=== PATIENT | female | born 1955 | race Caucasian/White ===

== ENCOUNTER 2020-02-17 09:06 | Day surgery (SDC) | payer BC, OTHER ==
[2020-02-06 14:42] VITALS: BMI 33.8
[2020-02-17 11:11] VITALS: PULSE 84; TEMP 98.4
[2020-02-17 11:46] VITALS: BP 163/90
--- NOTE | 2020-02-23 15:32 | PATH ---
Surgical Pathology Report Patient Name: ZANDRA JACOBO [facility]. Rec. #: [id number] /Age/Gender: 1955 (Age: 64) / F Account: [id number] Location: [facility] Taken: 02/17/2020 Received: 02/17/2020 Reported: 02/23/2020 Physicians: Trey Alberto M.D. Specimen(s) Received A: BX STOMACH B: BX POLYP ASCENDING COLON C: HOT SNARE POLYPECTOMY TRANSVERSE COLON Clinical History History of polyps, abdominal pain Postoperative diagnosis: Gastritis, colon polyps, diverticulosis, hemorrhoids Final Diagnosis A. STOMACH, BIOPSY: MILD CHRONIC GASTRITIS WITH FEATURES OF REACTIVE GASTROPATHY. IMMUNOSTAIN IS NEGATIVE FOR H. PYLORI ORGANISMS. B. ASCENDING COLON, POLYP, BIOPSY: TUBULAR ADENOMA. C. TRANSVERSE COLON, POLYP, HOT SNARE POLYPECTOMY: SESSILE SERRATED POLYP. Electronically Signed Tonya Shah M.D. Gross Description A. Received in formalin, labeled "biopsy stomach" are 4 pavon, irregular portions of soft tissue ranging from 0.1-0.3 cm. in greatest dimension. The specimens are submitted in toto in one cassette. B. Received in formalin, labeled "biopsy polyp ascending colon" is a pavon, irregular portion of soft tissue measuring 0.4 cm. in greatest dimension. The specimen is submitted in toto in one cassette. C. Received in formalin, labeled "hot snare polypectomy transverse colon" is a pavon, irregular portion of soft tissue measuring 0.5 cm. in greatest dimension. The specimen is submitted in toto in one cassette. 02/18/2020 [facility]/02/18/2020
== END 2020-02-17 11:45 | disposition home or self-care (01) ==
LOC: FASU-ENDO 09:06
PROVIDERS: ATTEND Internal Medicine Gastroenterology
PROC: 0DBK8ZX Excision of Ascending Colon, Via Natural or Artificial Opening Endoscopic, Diagnostic (ICD-10-PCS; 2020-02-17)
PROC: 0DB68ZX Excision of Stomach, Via Natural or Artificial Opening Endoscopic, Diagnostic (ICD-10-PCS; 2020-02-17)
PROC: 0DBL8ZX Excision of Transverse Colon, Via Natural or Artificial Opening Endoscopic, Diagnostic (ICD-10-PCS; principal; 2020-02-17 10:23)
DX: D12.2 Benign neoplasm of ascending colon (principal); D12.3 Benign neoplasm of transverse colon; K57.30 Diverticulosis of large intestine without perforation or abscess without bleeding; K64.8 Other hemorrhoids; K29.50 Unspecified chronic gastritis without bleeding; K31.9 Disease of stomach and duodenum, unspecified; R10.32 Left lower quadrant pain; R10.12 Left upper quadrant pain
CPT/HCPCS: 88305-TC; 88342-TC